=== PATIENT | male | born 2000 | race Caucasian/White ===

== ENCOUNTER 2021-03-14 17:55 | Inpatient (IN) ==
[2021-03-14 19:25] LABS: Bilirubin,Urine Negative (Negative); Blood,Urine Negative (Negative); Clarity,Urine Clear (Clear); Color,Urine Light-Yellow (Yellow); Glucose,Urine (UA) Normal (Normal); Ketones,Urine 20 mg/dL (Negative); Leukocyte Esterase,Urine Negative (Negative); Nitrite,Urine Negative (Negative); PH,Urine 6.5 pH Units (5.0-8.0); Protein,Urine Trace mg/dL (Neg-Trace); Urobilinogen,Urine Normal (Normal)
[2021-03-14 19:48] LABS: Amphetamine Screen,Urine Negative ng/mL (Cutoff=1000); Barbiturate Screen,Urine Negative ng/mL (Cutoff=200); Benzodiazepines Screen,Urine Negative ng/mL (Cutoff=200); Cannabinoid Screen,Urine Positive ng/mL (Cutoff = 50); Cocaine Screen,Urine Negative ng/mL (Cutoff= 300); Opiate Screen,Urine Negative ng/mL (Cutoff=300); Phencyclidine Screen,Urine Negative ng/mL (Cutoff=25)
[2021-03-15 03:53] LABS: Influenza A PCR Negative (Negative); Influenza B PCR Negative (Negative); Resp. Syncytial Virus PCR Negative (Negative)
[2021-03-15 03:55] LABS: SARS-CoV-2 by PCR (In House) Negative (Negative)
[2021-03-15] MEDS ORDERED: *HR* LORazepam 1 MG TABLET PO PRN (04:38)
[2021-03-15] MEDS ORDERED: hydrOXYzine pamoate 25 MG CAPSULE PO PRN (04:38)
[2021-03-15] MEDS ORDERED: *HR* LORazepam 2 MG/ML VIAL IM PRN (04:38)
[2021-03-15] MEDS ORDERED: Ibuprofen 400 MG TABLET PO PRN (04:38)
[2021-03-15] MEDS ORDERED: haloperidoL 5 MG TABLET PO PRN (04:38)
[2021-03-15] MEDS ORDERED: Haloperidol Lactate 5 MG/ML VIAL IM PRN (04:38)
[2021-03-15] MEDS ORDERED: Acetaminophen 325 MG TABLET PO PRN (04:38)
[2021-03-15] MEDS ORDERED: Nicotine 7 MG PATCH.TD24 TD SCH (09:00)
[2021-03-15] MEDS: Nicotine 2 MG GUM BC PRN ×4 (09:40→20:01)
[2021-03-15] MEDS: risperiDONE 1 MG TABLET PO SCH ×2 (11:01→20:36)
[2021-03-15] MEDS: Divalproex (12 HR) 500 MG TABLET PO SCH ×2 (11:02→20:36)
[2021-03-15] MEDS: QUEtiapine Fumarate 25 MG TABLET PO PRN (20:36)
[2021-03-16] MEDS: Nicotine 2 MG GUM BC PRN ×4 (07:28→19:46)
[2021-03-16] MEDS: risperiDONE 1 MG TABLET PO SCH ×2 (08:26→20:24)
[2021-03-16] MEDS: Divalproex (12 HR) 500 MG TABLET PO SCH ×2 (08:26→20:24)
[2021-03-16] MEDS: QUEtiapine Fumarate 25 MG TABLET PO PRN (20:23)
[2021-03-16 20:24] VITALS: O2SAT 99
[2021-03-17] MEDS: Divalproex (12 HR) 500 MG TABLET PO SCH (08:19)
[2021-03-17] MEDS: risperiDONE 1 MG TABLET PO SCH (08:19)
[2021-03-17] MEDS: Nicotine 2 MG GUM BC PRN ×2 (08:22→10:27)
[2021-03-17 09:47] VITALS: BP 124/81; PULSE 115; TEMP 97.9
== END 2021-03-17 12:15 | disposition home or self-care (01) | DRG 751 ==
LOC: EMEROOARM 17:55 → 1ANU 03-15 04:45
PROVIDERS: ADMIT Psychiatry & Neurology Psychiatry; ATTEND Psychiatry & Neurology Psychiatry